=== PATIENT | female | born 1975 | race Caucasian/White ===

== ENCOUNTER 2020-10-19 15:52 | Emergency (ER) | payer BC, SELFPAY ==
[2020-10-19 16:06] VITALS: BP 150/76; PULSE 65; RESP 16; TEMP 36.1; O2SAT 100
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
[2020-10-19] MEDS: oxyCODONE 5 mg/Acetaminophen 325 mg TAB 2 TAB PO (16:39)
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
[2020-10-19 18:48] VITALS: BP 127/71; PULSE 56; RESP 16; O2SAT 98
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
[2020-10-19 19:15] VITALS: BP 117/71; PULSE 61; RESP 16; O2SAT 98
[2020-10-19 20:00] VITALS: BP 119/65; PULSE 60; RESP 18; O2SAT 98
--- NOTE | 2020-10-19 22:22 | NUR.NOTE ---
exam by provider Nursing Note:
== END 2020-10-19 21:55 | disposition home or self-care (01) ==
PROVIDERS: Emergency Provider Physician Assistant
DX: S43.102A Unspecified dislocation of left acromioclavicular joint, initial encounter (principal); V18.0XXA Pedal cycle driver injured in noncollision transport accident in nontraffic accident, initial encounter; Y93.55 Activity, bike riding; M50.21 Other cervical disc displacement, high cervical region
CPT/HCPCS: 81025; 99284; 71046; 72125; 73030